=== PATIENT | male | born 1935 | race Caucasian/White ===

== ENCOUNTER 2017-10-14 18:45 | Observation (INO) | payer MEDICARE ==
[2017-10-14] MEDS ORDERED: 50% Dextrose in Water 50 ML Syringe IVPUSH ONE (18:48)
[2017-10-14] MEDS ORDERED: Glucagon,Human Recombinant 1 MG Vial ONE (18:48)
[2017-10-14] MEDS ORDERED: 50% Dextrose in Water 50 ML Syringe ONE (18:49)
[2017-10-14] MEDS ORDERED: Sodium Chloride 0.9% 1,000 ML IV SCH (19:00)
--- NOTE | 2017-10-14 19:09 | EDM.PDOC ---
ED HPI GENERAL MEDICAL PROBLEM - General Stated Complaint: PT HAS LOW BLOOD SUGAR Time Seen by Provider: 10/14/17 18:45 Source of Information: Reports: Family, Old Records - History of Present Illness INITIAL COMMENTS - FREE TEXT/NARRATIVE: HISTORY AND PHYSICAL: Low Blood sugar History of present illness: Patient is a 81-year-old male who presents to the emergency room by family members after an episode of low blood sugar causing him to be unresponsive. A home health nurse had talked to a family member who stated his blood sugar was in the 30-40's. Family then gave him some honey and chocolate milk but the sugar only increased by a couple points. Family members felt that he was not as responsive and brought him to the emergency room by private vehicle. Vital, ER nursing staff had to assist the patient from their personal vehicle into a wheelchair into the emergency department patient is breathing even and easily. He is drowsy, groaning out/slurred speech "help me". He is able to slowly follow commands. Patient has a past medical history of end-stage renal disease (receives dialysis , has missed 2 visits over the past 9 days), coronary artery disease, MS with stent placement, PVD, DM Type 2, hypertension, hyperlipidemia and end stage lung cancer with metastases "all over". Review of systems: As per history of present illness and below otherwise all systems reviewed and negative. Past medical history: As per history of present illness and as reviewed below otherwise noncontributory. Surgical history: As per history of present illness and as reviewed below otherwise noncontributory. Social history: No reported history of drug or alcohol abuse. Family history: As per history of present illness and as reviewed below otherwise noncontributory. Physical exam: General: Alert and oriented 81-year-old male. Appears chronically ill but in no acute distress. HEENT: Atraumatic, normocephalic, pupils equal and reactive bilaterally, negative for conjunctival pallor or scleral icterus, mucous membranes moist, throat clear, neck supple, nontender, trachea midline. No meningeal signs Lungs: Clear to auscultation, breath sounds equal bilaterally, chest nontender. Heart: S1S2, regular rate and rhythm without overt murmur Abdomen: Soft, nondistended, nontender. Negative for masses or hepatosplenomegaly. Negative for costovertebral tenderness. Pelvis: Stable nontender. Genitourinary: Deferred. Rectal: Deferred. Skin: Intact, warm, dry. Some old various bruising noted to lower extremities. No lesions or rashes noted. Extremities: Atraumatic, moves all extremties per self, negative for cords or calf pain. Neurovascular unremarkable. Neuro: Awake, alert, oriented (post D50 injection). Cranial nerves II through XII unremarkable. Cerebellum unremarkable. Motor and sensory unremarkable throughout. Exam nonfocal. Notes: GCS 9. IV access was established and an ampule of D50 was given. Within several minutes the patient became more alert and able to talk slurred speech. GCS 15. Daughter is now at the bedside and states that the is currently receiving home care and DNR due to his metastatic lung cancer. She states that he fell last night onto his right knee and ear, resulting in bruising. She states he has not lost any consciousness with this fall. This is the first time the patient has had a hypoglycemic episode. Reports he has been eating and drinking appropriately prior to coming to the emergency room. 194: CT of the head shows no evidence of mass, acute infarction or hemorrhage. There is a noted on the posterior tiffanie which the radiologist aches could represent calcification. CXR shows no changes from previous x-rays. Current blood sugar is 143. WBC: 18.48, BUN 41, Creat 4.3 (Hx of ESRD; has missed dialysis once this week). Family is aware of lab results/imaging; they would like him kept overnight for observation as they are uncomfortable going home with his blood sugar drop. Will consult with Cliff. 2000: Dr. Coronado is aware of this patient. He will come down to talk with the family members about admission versus transfer. My conversation with the family is that they would like to stay here. We'll continue to monitor, vital signs are stable. Diagnostics: CBC, CMP, troponin, EKG, chest x-ray, head CT, bedside glucose checks Therapeutics: IV normal saline, 1 ampule of D50 Impression: Hypoglycemia Renal failure Plan: Patient will be admitted for observation for comfort measures to [facility] per Dr. Coronado. Definitive disposition and diagnosis as appropriate pending reevaluation and review of above. Duration: Hour(s): - Related Data Allergies Allergy/AdvReac Type Severity Reaction Status Date / Time penicillin Allergy itchiness Verified 10/14/17 19:00 Home Meds: Home Meds Insulin Aspart [Novolog Flexpen] 9 units SQ DAILY 02/15/15 [History] Insulin Aspart [Novolog Flexpen] 11 units SQ BID 02/15/15 [History] Insulin Detemir [Levemir Flextouch] 35 units SQ DAILY 02/15/15 [History] Insulin Detemir [Levemir Flextouch] 40 units SQ DAILY 02/15/15 [History] Albuterol/Ipratropium [DuoNeb 3.0-0.5 MG/3 ML] 1 ampule INH ASDIRECTED 10/14/17 [History] Ipratropium/Albuterol Sulfate [Combivent Respimat Inhal [place]] 20 mcg IH ASDIRECTED 10/14/17 [History] Isosorbide Mononitrate [Imdur] 1 tab PO BID 10/14/17 [History] Metoprolol Succinate [Toprol XL 100mg] 100 mg PO BID 10/14/17 [History] NIFEdipine [Nifedipine ER] 1 tab PO DAILY 10/14/17 [History] Oxybutynin 1 tab PO DAILY 10/14/17 [History] Rosuvastatin Calcium 40 mg PO DAILY 10/14/17 [History] Sevelamer Carbonate [Renvela] 1 tab PO DAILY 10/14/17 [History] oxyCODONE HCl [Oxycodone HCl ER] 1 tab PO Q4HR PRN 10/14/17 [History] Social & Family History - Tobacco Use Smoking Status *Q: Current Every Day Smoker Years of Tobacco use: 64 ED ROS GENERAL - Review of Systems Review Of Systems: ROS reveals no pertinent complaints other than HPI. ED EXAM GENERAL NO PERIP PULSE - Physical Exam Exam: See Below (See dictation) Course - Vital Signs Last Recorded V/S: Last Vital Signs Temp 98.0 F 10/14/17 18:50 Pulse 64 10/14/17 20:00 Resp 19 10/14/17 20:00 BP 151/61 H 10/14/17 20:00 Pulse Ox 97 10/14/17 20:00 - Orders/Labs/Meds Orders: Active Orders 24 hr Category Date Time Status Admission Status [Patient Status] [ADT] Stat ADT 10/14/17 20:43 Active EKG Documentation Completion [RC] STAT Care 10/14/17 18:48 Active Glucose [Blood Glucose Check, Bedside] [RC] ONETIME Care 10/14/17 19:09 Active Chest 1V Frontal [CR] Stat Exams 10/14/17 18:48 Taken Head wo Cont [CT] Stat Exams 10/14/17 19:09 Taken UA W/MICROSCOPIC [URIN] Stat Lab 10/14/17 18:49 Ordered Sodium Chloride 0.9% [Normal Saline] 1,000 ml Med 10/14/17 19:00 Active IV ASDIRECTED Medication Orders Sodium Chloride (Normal Saline) 1,000 mls @ 999 mls/hr IV ASDIRECTED PHAM Last Admin: 10/14/17 18:52 Dose: 999 mls/hr Labs: Laboratory Tests 10/14/17 10/14/17 10/14/17 Range/Units 18:50 18:50 18:55 WBC 18.48 H (4.0-11.0) K/uL RBC 3.18 L (4.50-5.90) M/uL Hgb 10.3 L (13.0-17.0) g/dL Hct 30.8 L (38.0-50.0) % MCV 96.9 (80.0-98.0) fL MCH 32.4 H (27.0-32.0) pg MCHC 33.4 (31.0-37.0) g/dL RDW Std Deviation 59.1 (28.0-62.0) fl RDW Coeff of Sara 17 H (11.0-15.0) % Plt Count 262 (150-400) K/uL MPV 9.10 (7.40-12.00) fL Add Manual Diff YES Neutrophils % (Manual) 86 H (48.0-80.0) % Band Neutrophils % 2 % Lymphocytes % (Manual) 9 L (16.0-40.0) % Basophils % (Manual) 3 H (0.0-1.5) % Nucleated RBC % 0.0 /100WBC Absolute Seg Neuts 15.9 H (1.4-5.7) Band Neutrophils # 0.4 Lymphocytes # (Manual) 1.7 (0.6-2.4) Basophils # (Manual) 0.6 H (0.0-0.1) Nucleated RBCs # 0 K/uL Sodium 136 (136-148) mmol/L Potassium 4.1 (3.5-5.1) mmol/L Chloride 97 L (98-107) mmol/L Carbon Dioxide 26.4 (21.0-32.0) mmol/L BUN 41 H (7.0-18.0) mg/dL Creatinine 4.3 H (0.8-1.3) mg/dL Est Cr Clr Drug Dosing 15.29 mL/min Estimated GFR (MDRD) 13.4 ml/min Glucose 47 L (74-106) mg/dL POC Glucose 220 H (60-110) mg/dL Calcium 10.5 H (8.5-10.1) mg/dL Total Bilirubin 0.3 (0.2-1.0) mg/dL AST 34 (15-37) IU/L ALT 43 (14-63) IU/L Alkaline Phosphatase 198 H (46-116) U/L Troponin I < 0.050 (0.000-0.056) ng/mL Total Protein 8.2 (6.4-8.2) g/dL Albumin 3.1 L (3.4-5.0) g/dL Globulin 5.1 H (2.0-3.5) g/dL Albumin/Globulin Ratio 0.6 L (1.3-2.8) 10/14/17 Range/Units 19:49 WBC (4.0-11.0) K/uL RBC (4.50-5.90) M/uL Hgb (13.0-17.0) g/dL Hct (38.0-50.0) % MCV (80.0-98.0) fL MCH (27.0-32.0) pg MCHC (31.0-37.0) g/dL RDW Std Deviation (28.0-62.0) fl RDW Coeff of Sara (11.0-15.0) % Plt Count (150-400) K/uL MPV (7.40-12.00) fL Add Manual Diff Neutrophils % (Manual) (48.0-80.0) % Band Neutrophils % % Lymphocytes % (Manual) (16.0-40.0) % Basophils % (Manual) (0.0-1.5) % Nucleated RBC % /100WBC Absolute Seg Neuts (1.4-5.7) Band Neutrophils # Lymphocytes # (Manual) (0.6-2.4) Basophils # (Manual) (0.0-0.1) Nucleated RBCs # K/uL Sodium (136-148) mmol/L Potassium (3.5-5.1) mmol/L Chloride (98-107) mmol/L Carbon Dioxide (21.0-32.0) mmol/L BUN (7.0-18.0) mg/dL Creatinine (0.8-1.3) mg/dL Est Cr Clr Drug Dosing mL/min Estimated GFR (MDRD) ml/min Glucose (74-106) mg/dL POC Glucose 143 H (60-110) mg/dL Calcium (8.5-10.1) mg/dL Total Bilirubin (0.2-1.0) mg/dL AST (15-37) IU/L ALT (14-63) IU/L Alkaline Phosphatase (46-116) U/L Troponin I (0.000-0.056) ng/mL Total Protein (6.4-8.2) g/dL Albumin (3.4-5.0) g/dL Globulin (2.0-3.5) g/dL Albumin/Globulin Ratio (1.3-2.8) Meds: Medications Generic Name Dose Route Start Last Admin Trade Name Freq PRN Reason Stop Dose Admin Sodium Chloride 1,000 mls @ 999 mls/hr 10/14/17 19:00 10/14/17 18:52 Normal Saline IV 999 mls/hr ASDIRECTED PHAM Administration Discontinued Medications Generic Name Dose Route Start Last Admin Trade Name Freq PRN Reason Stop Dose Admin Dextrose/Water 50 ml 10/14/17 18:48 10/14/17 18:51 Dextrose 50% In Water IVPUSH 10/14/17 18:49 50 ml ONETIME ONE Administration Dextrose/Water Confirm 10/14/17 18:49 10/14/17 19:03 Dextrose 50% In Water Administered 10/14/17 18:50 Not Given Dose 50 ml .ROUTE .STK-MED ONE Glucagon Confirm 10/14/17 18:48 10/14/17 18:50 Glucagen Administered 10/14/17 18:49 Not Given Dose 1 mg .ROUTE .STK-MED ONE Departure - Departure Time of Disposition: 20:46 Disposition: Refer to Observation Clinical Impression: Hypoglycemia Renal failure Qualifiers: Renal failure chronicity: chronic Chronic kidney disease stage: on chronic dialysis Qualified Code(s): N18.6 - End stage renal disease; Z99.2 - Dependence on renal dialysis - Discharge Information Referrals: PCP,None [Primary Care Provider] - - My Orders Last 24 Hours: My Active Orders 10/14/17 18:48 EKG Documentation Completion [RC] STAT Chest 1V Frontal [CR] Stat 10/14/17 18:49 UA W/MICROSCOPIC [URIN] Stat 10/14/17 19:00 Sodium Chloride 0.9% [Normal Saline] 1,000 ml IV ASDIRECTED 10/14/17 19:09 Glucose [Blood Glucose Check, Bedside] [RC] ONETIME Head wo Cont [CT] Stat 10/14/17 20:43 Admission Status [Patient Status] [ADT] Stat - Assessment/Plan Last 24 Hours: My Active Orders 10/14/17 18:48 EKG Documentation Completion [RC] STAT Chest 1V Frontal [CR] Stat 10/14/17 18:49 UA W/MICROSCOPIC [URIN] Stat 10/14/17 19:00 Sodium Chloride 0.9% [Normal Saline] 1,000 ml IV ASDIRECTED 10/14/17 19:09 Glucose [Blood Glucose Check, Bedside] [RC] ONETIME Head wo Cont [CT] Stat 10/14/17 20:43 Admission Status [Patient Status] [ADT] Stat
[2017-10-14 19:23] LABS: CHLORIDE,CL 97 mmol/L (98-107); SODIUM,NA 136 mmol/L (136-148)
--- NOTE | 2017-10-14 20:58 | PCM.HP ---
H&P History of Present Illness - General Admit Problem/Dx: Admission Diagnosis/Problem Admission Diagnosis/Problem Hypoglycemia - History of Present Illness Initial Comments - Free Text/Narative: 81 yo male with pmh of ESRD on dialysis, metastatic lung cancer, CAD, and DM. The patient was noted to be unresponsive at home his blood glucose level was noted to be 37. He was brought to the ED and given D50 which brought his glucose up to 143. Patient over the past week has felt run down and missed his dialysis as he did not feel like going. Family reports generalized weakness. - Related Data Allergies/Adverse Reactions: Allergies Allergy/AdvReac Type Severity Reaction Status Date / Time penicillin Allergy itchiness Verified 10/14/17 19:00 Home Medications: Home Meds Insulin Aspart [Novolog Flexpen] 9 units SQ DAILY 02/15/15 [History] Insulin Aspart [Novolog Flexpen] 11 units SQ BID 02/15/15 [History] Insulin Detemir [Levemir Flextouch] 35 units SQ DAILY 02/15/15 [History] Insulin Detemir [Levemir Flextouch] 40 units SQ DAILY 02/15/15 [History] Albuterol/Ipratropium [DuoNeb 3.0-0.5 MG/3 ML] 1 ampule INH ASDIRECTED 10/14/17 [History] Ipratropium/Albuterol Sulfate [Combivent Respimat Inhal [place]] 20 mcg IH ASDIRECTED 10/14/17 [History] Isosorbide Mononitrate [Imdur] 1 tab PO BID 10/14/17 [History] Metoprolol Succinate [Toprol XL 100mg] 100 mg PO BID 10/14/17 [History] NIFEdipine [Nifedipine ER] 1 tab PO DAILY 10/14/17 [History] Oxybutynin 1 tab PO DAILY 10/14/17 [History] Rosuvastatin Calcium 40 mg PO DAILY 10/14/17 [History] Sevelamer Carbonate [Renvela] 1 tab PO DAILY 10/14/17 [History] oxyCODONE HCl [Oxycodone HCl ER] 1 tab PO Q4HR PRN 10/14/17 [History] Past Medical History Cardiovascular History: Reports: CAD, High Cholesterol, Hypertension, MA, PVD, Stents Genitourinary History: Reports: Renal Disease Endocrine/Metabolic History: Reports: Diabetes, Type II Oncologic (Cancer) History: Reports: Lung, Other (See Below) Other Oncologic History: metastatic lung cancer Social & Family History - Family History Family Medical History: Noncontributory - Tobacco Use Smoking Status *Q: Current Every Day Smoker Years of Tobacco use: 64 Used Tobacco, but Quit: Yes Month/Year Tobacco Last Used: unk - Recreational Drug Use Recreational Drug Use: No H&P Review of Systems - Review of Systems: Review Of Systems: ROS reveals no pertinent complaints other than HPI. Exam - Exam Exam: See Below - Vital Signs Vital Signs: Last Vital Signs Temp 36.7 C 10/14/17 18:50 Pulse 64 10/14/17 20:00 Resp 19 10/14/17 20:00 BP 151/61 H 10/14/17 20:00 Pulse Ox 97 10/14/17 20:00 Weight: 86.1 kg - Exam General: Alert, Oriented Lungs: Clear to Auscultation, Normal Respiratory Effort Cardiovascular: Regular Rate, Regular Rhythm GI/Abdominal Exam: Soft, Non-Tender Extremities: No Pedal Edema Skin: Warm, Dry, Intact - Patient Data Lab Results Last 24 hrs: Laboratory Results - last 24 hr 10/14/17 10/14/17 10/14/17 Range/Units 18:50 18:50 18:55 WBC 18.48 H (4.0-11.0) K/uL RBC 3.18 L (4.50-5.90) M/uL Hgb 10.3 L (13.0-17.0) g/dL Hct 30.8 L (38.0-50.0) % MCV 96.9 (80.0-98.0) fL MCH 32.4 H (27.0-32.0) pg MCHC 33.4 (31.0-37.0) g/dL RDW Std Deviation 59.1 (28.0-62.0) fl RDW Coeff of Sara 17 H (11.0-15.0) % Plt Count 262 (150-400) K/uL MPV 9.10 (7.40-12.00) fL Add Manual Diff YES Neutrophils % (Manual) 86 H (48.0-80.0) % Band Neutrophils % 2 % Lymphocytes % (Manual) 9 L (16.0-40.0) % Basophils % (Manual) 3 H (0.0-1.5) % Nucleated RBC % 0.0 /100WBC Absolute Seg Neuts 15.9 H (1.4-5.7) Band Neutrophils # 0.4 Lymphocytes # (Manual) 1.7 (0.6-2.4) Basophils # (Manual) 0.6 H (0.0-0.1) Nucleated RBCs # 0 K/uL Sodium 136 (136-148) mmol/L Potassium 4.1 (3.5-5.1) mmol/L Chloride 97 L (98-107) mmol/L Carbon Dioxide 26.4 (21.0-32.0) mmol/L BUN 41 H (7.0-18.0) mg/dL Creatinine 4.3 H (0.8-1.3) mg/dL Est Cr Clr Drug Dosing 15.29 mL/min Estimated GFR (MDRD) 13.4 ml/min Glucose 47 L (74-106) mg/dL POC Glucose 220 H (60-110) mg/dL Calcium 10.5 H (8.5-10.1) mg/dL Total Bilirubin 0.3 (0.2-1.0) mg/dL AST 34 (15-37) IU/L ALT 43 (14-63) IU/L Alkaline Phosphatase 198 H (46-116) U/L Troponin I < 0.050 (0.000-0.056) ng/mL Total Protein 8.2 (6.4-8.2) g/dL Albumin 3.1 L (3.4-5.0) g/dL Globulin 5.1 H (2.0-3.5) g/dL Albumin/Globulin Ratio 0.6 L (1.3-2.8) 10/14/17 Range/Units 19:49 WBC (4.0-11.0) K/uL RBC (4.50-5.90) M/uL Hgb (13.0-17.0) g/dL Hct (38.0-50.0) % MCV (80.0-98.0) fL MCH (27.0-32.0) pg MCHC (31.0-37.0) g/dL RDW Std Deviation (28.0-62.0) fl RDW Coeff of Sara (11.0-15.0) % Plt Count (150-400) K/uL MPV (7.40-12.00) fL Add Manual Diff Neutrophils % (Manual) (48.0-80.0) % Band Neutrophils % % Lymphocytes % (Manual) (16.0-40.0) % Basophils % (Manual) (0.0-1.5) % Nucleated RBC % /100WBC Absolute Seg Neuts (1.4-5.7) Band Neutrophils # Lymphocytes # (Manual) (0.6-2.4) Basophils # (Manual) (0.0-0.1) Nucleated RBCs # K/uL Sodium (136-148) mmol/L Potassium (3.5-5.1) mmol/L Chloride (98-107) mmol/L Carbon Dioxide (21.0-32.0) mmol/L BUN (7.0-18.0) mg/dL Creatinine (0.8-1.3) mg/dL Est Cr Clr Drug Dosing mL/min Estimated GFR (MDRD) ml/min Glucose (74-106) mg/dL POC Glucose 143 H (60-110) mg/dL Calcium (8.5-10.1) mg/dL Total Bilirubin (0.2-1.0) mg/dL AST (15-37) IU/L ALT (14-63) IU/L Alkaline Phosphatase (46-116) U/L Troponin I (0.000-0.056) ng/mL Total Protein (6.4-8.2) g/dL Albumin (3.4-5.0) g/dL Globulin (2.0-3.5) g/dL Albumin/Globulin Ratio (1.3-2.8) Result Diagrams: 10/14/17 18:50 10/14/17 18:50 Problem List Initiated/Reviewed/Updated: Yes Orders Last 24hrs: Active Orders 24 hr Category Date Time Status Admission Status [Patient Status] [ADT] Stat ADT 10/14/17 20:43 Active Blood Glucose Check, Bedside [RC] QIDACANDBED Care 10/14/17 20:45 Ordered EKG Documentation Completion [RC] STAT Care 10/14/17 18:48 Active Glucose [Blood Glucose Check, Bedside] [RC] ONETIME Care 10/14/17 19:09 Active Oxygen Therapy [RC] PRN Care 10/14/17 20:45 Ordered Up ad Kayla [RC] ASDIRECTED Care 10/14/17 20:45 Ordered VTE/DVT Education [RC] PER UNIT ROUTINE Care 10/14/17 20:45 Ordered Vital Signs [RC] Q4H Care 10/14/17 20:45 Ordered Regular Diet [DIET] Diet 10/14/17 Breakfast Ordered Chest 1V Frontal [CR] Stat Exams 10/14/17 18:48 Taken Head wo Cont [CT] Stat Exams 10/14/17 19:09 Taken UA W/MICROSCOPIC [URIN] Stat Lab 10/14/17 18:49 Ordered Sodium Chloride 0.9% [Normal Saline] 1,000 ml Med 10/14/17 19:00 Active IV ASDIRECTED Resuscitation Status Routine Resus Stat 10/14/17 20:45 Ordered Medication Orders Sodium Chloride (Normal Saline) 1,000 mls @ 999 mls/hr IV ASDIRECTED PHAM Last Admin: 10/14/17 18:52 Dose: 999 mls/hr Assessment/Plan Comment:: 81 yo male admitted following an episode of hypoglycemia. Regarding the patient's leukocytosis, lethargy, and ESRD I mentioned that as a critical access hospital I could not dialyze him. I could offer him observation with palliative care. Family and patient agree to observe him for his hypoglycemia with likely discharge home tomorrow.
[2017-10-14] MEDS ORDERED: OXYCODONE HCL PO PRN (23:40)
[2017-10-15 07:56] VITALS: BP 130/52
--- NOTE | 2017-10-15 11:28 | PCM.DCSUM1 ---
Discharge Summary - Hospital Course Brief History: 81 yo male with pmh of ESRD on dialysis, metastatic lung cancer, CAD, and DM. The patient was noted to be unresponsive at home his blood glucose level was noted to be 37. He was brought to the ED and given D50 which brought his glucose up to 143. Patient over the past week has felt run down and missed his dialysis as he did not feel like going. Family reports generalized weakness. - Discharge Data Discharge Date: 10/15/17 Discharge Disposition: Home, W Home Health Agency 06 Condition: Fair - Discharge Diagnosis/Problem(s) (1) Hypoglycemia SNOMED Code(s): 338379013 ICD Code: E16.2 - HYPOGLYCEMIA, UNSPECIFIED Status: Acute Current Visit: Yes (2) ESRD (end stage renal disease) on dialysis SNOMED Code(s): 914724291 ICD Code: N18.6 - END STAGE RENAL DISEASE; Z99.2 - DEPENDENCE ON RENAL DIALYSIS Status: Chronic Current Visit: Yes (3) Lung cancer SNOMED Code(s): 016521508 ICD Code: C34.90 - MALIGNANT NEOPLASM OF UNSP PART OF UNSP BRONCHUS OR LUNG Status: Chronic Current Visit: Yes (4) CAD (coronary artery disease) SNOMED Code(s): 22893635 ICD Code: I25.10 - ATHSCL HEART DISEASE OF [place] CORONARY ARTERY W/O ANG PCTRS Status: Chronic Current Visit: Yes (5) DM type 2 (diabetes mellitus, type 2) SNOMED Code(s): 68815088 ICD Code: E11.9 - TYPE 2 DIABETES MELLITUS WITHOUT COMPLICATIONS Status: Chronic Current Visit: Yes Qualifiers: Diabetes mellitus assisted insulin use: with assisted use Diabetes mellitus complication status: with hypoglycemia Diabetes mellitus complication detail: without coma Qualified Code(s): E11.649 - Type 2 diabetes mellitus with hypoglycemia without coma; Z79.4 - local intermodal truck driver (current) use of insulin - Patient Summary/Data Consults: Consultations 10/15/17 08:58 Consult to Hospice [CONS] Routine - Patient Instructions Diet: Diabetic Diet Activity: As Tolerated, No Strenuous Activities, Rest and Relax Today Notify Provider of: Fever, Increased Pain, Swelling and Redness, Drainage, Nausea and/or Vomiting - Discharge Plan Home Medications: Home Meds Insulin Aspart [Novolog Flexpen] 9 units SQ DAILY 02/15/15 [History] Insulin Aspart [Novolog Flexpen] 11 units SQ BID 02/15/15 [History] Albuterol/Ipratropium [DuoNeb 3.0-0.5 MG/3 ML] 1 ampule INH ASDIRECTED 10/14/17 [History] Ipratropium/Albuterol Sulfate [Combivent Respimat Inhal [place]] 20 mcg IH ASDIRECTED 10/14/17 [History] Isosorbide Mononitrate [Imdur] 1 tab PO BID 10/14/17 [History] Metoprolol Succinate [Toprol XL 100mg] 100 mg PO BID 10/14/17 [History] NIFEdipine [Nifedipine ER] 1 tab PO DAILY 10/14/17 [History] Oxybutynin 1 tab PO DAILY 10/14/17 [History] Rosuvastatin Calcium 40 mg PO DAILY 10/14/17 [History] Sevelamer Carbonate [Renvela] 1 tab PO DAILY 10/14/17 [History] oxyCODONE HCl [Oxycodone HCl ER] 1 tab PO Q4HR PRN 10/14/17 [History] Insulin Detemir [Levemir Flextouch] 25 units SQ DAILY #0 10/15/17 [Rx] Insulin Detemir [Levemir Flextouch] 30 units SQ DAILY #0 10/15/17 [Rx] Patient Handouts: Hypoglycemia, [id number] Referrals: PCP,None [Primary Care Provider] - (follow up with PCP in 1 week.) Vasu Jane MD [Physician] - - Discharge Summary/Plan Comment DC Time >30 min.: No Discharge Summary/Plan Comment: Discharge Diagnoses: Hypoglycemia Malaise/fatigue ESRD on dialysis Lung cancer CAD Dm type 2 requiring insulin Rufus arrived yesterday with hypoglycemic episode with unresponsive episode. Patient and family offered transfer for further work up of leukocytosis and fatigue, but family declined this. They were offered palliative care and Hospice consult today, which they would like to speak with Hospice. They are ready for Hospice care, but Rufus is still undecided. He is very adamant of wanting to go home today and will continue to talk with family and Home Health regarding transitioning to Hospice care. Dr Arnold has recommended Hospice care for him as well. For hypoglycemia, we will decrease Levemir by 25%, 35 units in the morning and 20 units at nighttime. I did speak with PCP, Dr Jane regarding admission and possible Hospice transition. Family at bedside are in agreement with discharge home today and with Hospice consult. - General Info Date of Service: 10/15/17 Admission Dx/Problem (Free Text: Admission Diagnosis/Problem Admission Diagnosis/Problem Hypoglycemia Subjective Update: Feeling much better today. Asking to go home. No other concerns. Family at bedside who also agree with discharge home. Functional Status: Reports: Pain Controlled, Tolerating Diet, Ambulating, Urinating - Review of Systems General: Reports: No Symptoms. Denies: Fever, Fatigue HEENT: Reports: No Symptoms. Denies: Sinus Congestion, Visual Changes Pulmonary: Reports: No Symptoms. Denies: Shortness of Breath Cardiovascular: Reports: No Symptoms. Denies: Chest Pain Gastrointestinal: Reports: No Symptoms. Denies: Abdominal Pain, Nausea, Vomiting Genitourinary: Reports: No Symptoms. Denies: Dysuria, Frequency, Burning Musculoskeletal: Reports: No Symptoms Skin: Reports: No Symptoms Neurological: Reports: No Symptoms Psychiatric: Reports: No Symptoms - Patient Data Vitals - Most Recent: Last Vital Signs Temp 98.7 F 10/15/17 07:56 Pulse 72 10/15/17 07:56 Resp 16 10/15/17 07:56 BP 130/52 L 10/15/17 07:56 Pulse Ox 99 10/15/17 07:56 Weight - Most Recent: 84.538 kg I&O - Last 24 hours: Intake & Output 10/14/17 10/15/17 10/15/17 22:59 06:59 14:59 Intake Total 1240 Output Total 280 400 Balance -280 840 Lab Results - Last 24 hrs: Laboratory Results - last 24 hr 10/14/17 10/14/17 10/14/17 Range/Units 18:50 18:50 18:55 WBC 18.48 H (4.0-11.0) K/uL RBC 3.18 L (4.50-5.90) M/uL Hgb 10.3 L (13.0-17.0) g/dL Hct 30.8 L (38.0-50.0) % MCV 96.9 (80.0-98.0) fL MCH 32.4 H (27.0-32.0) pg MCHC 33.4 (31.0-37.0) g/dL RDW Std Deviation 59.1 (28.0-62.0) fl RDW Coeff of Saar 17 H (11.0-15.0) % Plt Count 262 (150-400) K/uL MPV 9.10 (7.40-12.00) fL Add Manual Diff YES Neutrophils % (Manual) 86 H (48.0-80.0) % Band Neutrophils % 2 % Lymphocytes % (Manual) 9 L (16.0-40.0) % Basophils % (Manual) 3 H (0.0-1.5) % Nucleated RBC % 0.0 /100WBC Absolute Seg Neuts 15.9 H (1.4-5.7) Band Neutrophils # 0.4 Lymphocytes # (Manual) 1.7 (0.6-2.4) Basophils # (Manual) 0.6 H (0.0-0.1) Nucleated RBCs # 0 K/uL Sodium 136 (136-148) mmol/L Potassium 4.1 (3.5-5.1) mmol/L Chloride 97 L (98-107) mmol/L Carbon Dioxide 26.4 (21.0-32.0) mmol/L BUN 41 H (7.0-18.0) mg/dL Creatinine 4.3 H (0.8-1.3) mg/dL Est Cr Clr Drug Dosing 15.29 mL/min Estimated GFR (MDRD) 13.4 ml/min Glucose 47 L (74-106) mg/dL POC Glucose 220 H (60-110) mg/dL Calcium 10.5 H (8.5-10.1) mg/dL Total Bilirubin 0.3 (0.2-1.0) mg/dL AST 34 (15-37) IU/L ALT 43 (14-63) IU/L Alkaline Phosphatase 198 H (46-116) U/L Troponin I < 0.050 (0.000-0.056) ng/mL Total Protein 8.2 (6.4-8.2) g/dL Albumin 3.1 L (3.4-5.0) g/dL Globulin 5.1 H (2.0-3.5) g/dL Albumin/Globulin Ratio 0.6 L (1.3-2.8) Urine Color Urine Appearance Urine pH (5.0-8.0) Ur Specific [place] (1.001-1.035) Urine Protein (NEGATIVE) mg/dL Urine Glucose (UA) (NEGATIVE) mg/dL Urine Ketones (NEGATIVE) mg/dL Urine Occult Blood (NEGATIVE) Urine Nitrite (NEGATIVE) Urine Bilirubin (NEGATIVE) Urine Urobilinogen (<2.0) EU/dL Ur Leukocyte Esterase (NEGATIVE) Urine RBC (0-2/HPF) Urine WBC (0-5/HPF) Ur Epithelial Cells (NONE-FEW) Urine Bacteria (NEGATIVE) 10/14/17 10/14/17 Range/Units 19:49 20:40 WBC (4.0-11.0) K/uL RBC (4.50-5.90) M/uL Hgb (13.0-17.0) g/dL Hct (38.0-50.0) % MCV (80.0-98.0) fL MCH (27.0-32.0) pg MCHC (31.0-37.0) g/dL RDW Std Deviation (28.0-62.0) fl RDW Coeff of Sara (11.0-15.0) % Plt Count (150-400) K/uL MPV (7.40-12.00) fL Add Manual Diff Neutrophils % (Manual) (48.0-80.0) % Band Neutrophils % % Lymphocytes % (Manual) (16.0-40.0) % Basophils % (Manual) (0.0-1.5) % Nucleated RBC % /100WBC Absolute Seg Neuts (1.4-5.7) Band Neutrophils # Lymphocytes # (Manual) (0.6-2.4) Basophils # (Manual) (0.0-0.1) Nucleated RBCs # K/uL Sodium (136-148) mmol/L Potassium (3.5-5.1) mmol/L Chloride (98-107) mmol/L Carbon Dioxide (21.0-32.0) mmol/L BUN (7.0-18.0) mg/dL Creatinine (0.8-1.3) mg/dL Est Cr Clr Drug Dosing mL/min Estimated GFR (MDRD) ml/min Glucose (74-106) mg/dL POC Glucose 143 H (60-110) mg/dL Calcium (8.5-10.1) mg/dL Total Bilirubin (0.2-1.0) mg/dL AST (15-37) IU/L ALT (14-63) IU/L Alkaline Phosphatase (46-116) U/L Troponin I (0.000-0.056) ng/mL Total Protein (6.4-8.2) g/dL Albumin (3.4-5.0) g/dL Globulin (2.0-3.5) g/dL Albumin/Globulin Ratio (1.3-2.8) Urine Color YELLOW Urine Appearance HAZY Urine pH 7.5 (5.0-8.0) Ur Specific [place] 1.015 (1.001-1.035) Urine Protein 100 (NEGATIVE) mg/dL Urine Glucose (UA) NEGATIVE (NEGATIVE) mg/dL Urine Ketones NEGATIVE (NEGATIVE) mg/dL Urine Occult Blood TRACE-INTACT (NEGATIVE) Urine Nitrite NEGATIVE (NEGATIVE) Urine Bilirubin NEGATIVE (NEGATIVE) Urine Urobilinogen 0.2 (<2.0) EU/dL Ur Leukocyte Esterase TRACE (NEGATIVE) Urine RBC 0-2 (0-2/HPF) Urine WBC 1-4 (0-5/HPF) Ur Epithelial Cells RARE (NONE-FEW) Urine Bacteria FEW (NEGATIVE) Med Orders - Current: Current Medications Sodium Chloride (Normal Saline) 1,000 mls @ 999 mls/hr IV ASDIRECTED [facility] Last Admin: 10/14/17 18:52 Dose: 999 mls/hr Non-Formulary Medication (Oxycodone Hcl [Oxycodone Hcl Er]) 1 tab PO Q4HR PRN PRN Reason: Pain Discontinued Medications Dextrose/Water (Dextrose 50% In Water) 50 ml IVPUSH ONETIME ONE Stop: 10/14/17 18:49 Last Admin: 10/14/17 18:51 Dose: 50 ml Dextrose/Water (Dextrose 50% In Water) Confirm Administered Dose 50 ml .ROUTE .STK-MED ONE Stop: 10/14/17 18:50 Last Admin: 10/14/17 19:03 Dose: Not Given Glucagon (Glucagen) Confirm Administered Dose 1 mg .ROUTE .STK-MED ONE Stop: 10/14/17 18:49 Last Admin: 10/14/17 18:50 Dose: Not Given - Exam General: Reports: Alert, Oriented, Cooperative, No Acute Distress Lungs: Reports: Clear to Auscultation, Normal Respiratory Effort Cardiovascular: Reports: Regular Rate, Regular Rhythm GI/Abdominal Exam: Normal Bowel Sounds, Soft, Non-Tender, No Organomegaly, No Distention, No Abnormal Bruit, No Mass, Pelvis Stable Extremities: Normal Inspection, Normal Range of Motion, Non-Tender, No Pedal Edema, Normal Capillary Refill Neurological: Reports: No New Focal Deficit Psy/Mental Status: Reports: Alert, Normal Affect, Normal Mood
--- NOTE | 2017-10-15 15:03 | CR ---
EXAM DATE: 10/14/17 PATIENT'S AGE: 81 Patient: MARIA T HERNÁNDEZ Facility: [place], [place] Site . Site : 1935 Study: XRay Chest [id number]/[id number] 7:09:25 PM Ordering Physician: Doctor Aquino Final Report: INDICATION: AMS. Loss of consciousness. TECHNIQUE: Upright portable AP image of the chest. COMPARISON: 08/20/2017. FINDINGS: AP image somewhat lordotic. Right apical opacity grossly unchanged. Lungs otherwise clear. No pleural effusion. Heart size and pulmonary vasculature within normal limits. IMPRESSION: No significant change from 08/20/2017. Dictated by Greg Bustamante MD @ Oct 14 2017 7:23PM (Electronic Signature) Report Signed by Proxy. TULIO
--- NOTE | 2017-10-15 15:04 | CT ---
EXAM DATE: 10/14/17 PATIENT'S AGE: 81 Patient: MARIA T HERNÁNDEZ Facility: [place], [place] Site . Site : 1935 Study: CT Head [id number]/8/2018 7:34:22 PM Ordering Physician: Doctor Aquino Final Report: INDICATION: Transient alteration of awareness, loss of consciousness TECHNIQUE: CT Head without i.v. contrast. CONTRAST: None COMPARISON: None FINDINGS: CSF spaces: The ventricles are normal for age. Brain: No evidence of mass, acute infarction or hemorrhage is seen. No mass- effect or midline shift is seen. Mild diffuse cortical atrophy is noted. Moderate patchy regions of low attenuation are present in the periventricular white matter, likely due to chronic microvascular ischemic changes. There is a punctate density present in the posterior tiffanie measuring 3 mm. Calvarium: The visualized paranasal sinuses are well aerated. The mastoid air cells are clear. The visualized orbits are grossly unremarkable. The calvarium is unremarkable in appearance with no fractures identified. IMPRESSION: 1. There is a punctate density present in the posterior tiffanie measuring 3 mm. This may represent a focus of calcification and comparison with any prior outside imaging is recommended. If these cannot be obtained, clinical and short- term follow-up is recommended to exclude the less likely possibility of a punctate hemorrhage. A copy of this report was faxed to the ordering physician at approximately 7:46 PM. Dictated by Alo Saldaña MD @ 10/14/2017 7:46:01 PM Dictated by: Alo Saldaña MD @ 10/14/2017 19:46:29 (Electronic Signature) Report Signed by Proxy. TULIO
== END 2017-10-15 13:30 | disposition home health service (06) ==
LOC: MW.ED 18:45 → MW.MS 20:43
PROVIDERS: ADMIT Internal Medicine; ATTEND Internal Medicine
DX: E11.649 Type 2 diabetes mellitus with hypoglycemia without coma (principal); I12.0 Hypertensive chronic kidney disease with stage 5 chronic kidney disease or end stage renal disease; N18.6 End stage renal disease; C34.90 Malignant neoplasm of unspecified part of unspecified bronchus or lung; E11.22 Type 2 diabetes mellitus with diabetic chronic kidney disease; E78.00 Pure hypercholesterolemia, unspecified; I25.10 Atherosclerotic heart disease of native coronary artery without angina pectoris; F17.200 Nicotine dependence, unspecified, uncomplicated; I25.2 Old myocardial infarction; Z99.2 Dependence on renal dialysis; Z79.4 Long term (current) use of insulin; Z79.899 Other long term (current) drug therapy; Z88.0 Allergy status to penicillin
CPT/HCPCS: 36415; 70450; 71045; 80053; 81001; 82962; 84484; 85025; 93005; 96361; 96374; 99285; G0378; J7040; J7060

== ENCOUNTER 2017-10-30 10:29 | Inpatient (IN) | payer MEDICARE ==
[2017-10-30] MEDS ORDERED: Morphine Oral Concentrate 20 MG/ML 30 ML Bottle SL PRN ×2 (10:34→12:33)
[2017-10-30 10:36] VITALS: BP 161/55
[2017-10-30] MEDS ORDERED: Hyoscyamine 0.125 MG Tab.SL SL PRN (10:42)
[2017-10-30] MEDS ORDERED: Haloperidol Lactate 2 MG/ML Oral Soln 15 ML Bottle PO PRN (10:42)
[2017-10-30] MEDS ORDERED: Bisacodyl 10 MG Supp RECTAL PRN (10:44)
[2017-10-30] MEDS: Morphine Oral Concentrate 20 MG/ML 30 ML Bottle SL PRN ×3 (11:02→12:24)
--- NOTE | 2017-10-30 11:09 | PCM.HP ---
H&P History of Present Illness - General Date of Service: 10/30/17 Admit Problem/Dx: Admission Diagnosis/Problem Admission Diagnosis/Problem Hospice care Source of Information: Family, Old Records (Hospice records) History Limitations: Reports: Altered Mental Status - History of Present Illness Initial Comments - Free Text/Narative: This 82 year old male admitted today with Hospice Respite care for palliative care due to terminal illness of Metastatic lung cancer and ESRD with hx of dialysis. Family has been caring for Rufus at home. Family requested respite care. PCP, Dr Jane. - Related Data Allergies/Adverse Reactions: Allergies Allergy/AdvReac Type Severity Reaction Status Date / Time penicillin Allergy itchiness Verified 10/14/17 23:48 Home Medications: Home Meds Insulin Aspart [Novolog Flexpen] 9 units SQ DAILY 02/15/15 [History] Insulin Aspart [Novolog Flexpen] 11 units SQ BID 02/15/15 [History] Albuterol/Ipratropium [DuoNeb 3.0-0.5 MG/3 ML] 1 ampule INH ASDIRECTED 10/14/17 [History] Ipratropium/Albuterol Sulfate [Combivent Respimat Inhal [place]] 20 mcg IH ASDIRECTED 10/14/17 [History] Isosorbide Mononitrate [Imdur] 1 tab PO BID 10/14/17 [History] Metoprolol Succinate [Toprol XL 100mg] 100 mg PO BID 10/14/17 [History] NIFEdipine [Nifedipine ER] 1 tab PO DAILY 10/14/17 [History] Oxybutynin 1 tab PO DAILY 10/14/17 [History] Rosuvastatin Calcium 40 mg PO DAILY 10/14/17 [History] Sevelamer Carbonate [Renvela] 1 tab PO DAILY 10/14/17 [History] oxyCODONE HCl [Oxycodone HCl ER] 1 tab PO Q4HR PRN 10/14/17 [History] Insulin Detemir [Levemir Flextouch] 25 units SQ DAILY #0 10/15/17 [Rx] Insulin Detemir [Levemir Flextouch] 30 units SQ DAILY #0 10/15/17 [Rx] Past Medical History Cardiovascular History: Reports: CAD, High Cholesterol, Hypertension, [place], PVD, Stents Respiratory History: Reports: COPD Genitourinary History: Reports: Renal Disease (ESRD, hx dialysis) Endocrine/Metabolic History: Reports: Diabetes, Type II Oncologic (Cancer) History: Reports: Lung, Other (See Below) Other Oncologic History: metastatic lung cancer Social & Family History - Family History Family Medical History: Noncontributory - Tobacco Use Smoking Status *Q: Current Every Day Smoker Years of Tobacco use: 65 Packs/Tins Daily: 1 Used Tobacco, but Quit: No Month/Year Tobacco Last Used: unk - Caffeine Use Caffeine Use: Reports: None - Recreational Drug Use Recreational Drug Use: No H&P Review of Systems - Review of Systems: Review Of Systems: Unable To Obtain (patient unresponsive.) Exam - Exam Exam: See Below - Vital Signs Vital Signs: Last Vital Signs Temp 97.7 F 10/30/17 10:31 Pulse 72 10/30/17 10:31 Resp 22 H 10/30/17 10:31 BP 161/55 H 10/30/17 10:31 Pulse Ox 86 L 10/30/17 10:31 - Exam General: Lethargic, Other (pallor) HEENT: Conjunctiva Clear. No: Mucosa Moist & [place] Neck: Supple Lungs: Crackles (throughout), Rhonchi Cardiovascular: Regular Rate, Regular Rhythm Extremities: Normal Inspection, Normal Range of Motion, Non-Tender, No Pedal Edema, Normal Capillary Refill - Problem List (1) Admission for hospice care SNOMED Code(s): 830286974, 443914412 ICD Code: Z51.5 - ENCOUNTER FOR PALLIATIVE CARE Status: Acute Current Visit: Yes (2) Palliative care status SNOMED Code(s): 489295835 ICD Code: Z51.5 - ENCOUNTER FOR PALLIATIVE CARE Status: Acute Current Visit: Yes (3) Hx of myocardial infarction SNOMED Code(s): 686095391 ICD Code: I25.2 - OLD MYOCARDIAL INFARCTION Status: Chronic Current Visit : Yes (4) HTN (hypertension) SNOMED Code(s): 63020774 ICD Code: I10 - ESSENTIAL (PRIMARY) HYPERTENSION Status: Chronic Current Visit: Yes Qualifiers: Hypertension type: essential hypertension Qualified Code(s): I10 - Essential (primary) hypertension (5) Anemia, chronic disease SNOMED Code(s): 445293757 ICD Code: D63.8 - ANEMIA IN OTHER CHRONIC DISEASES CLASSIFIED ELSEWHERE Status: Chronic Current Visit: Yes (6) CAD (coronary artery disease) SNOMED Code(s): 11011312 ICD Code: I25.10 - ATHSCL HEART DISEASE OF [place] CORONARY ARTERY W/O ANG PCTRS Status: Chronic Current Visit: No (7) DM type 2 (diabetes mellitus, type 2) SNOMED Code(s): 99645929 ICD Code: E11.9 - TYPE 2 DIABETES MELLITUS WITHOUT COMPLICATIONS Status: Chronic Current Visit: No Qualifiers: Diabetes mellitus 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 Diabetes mellitus complication status: with hypoglycemia Diabetes mellitus complication detail: without coma Qualified Code(s): E11.649 - Type 2 diabetes mellitus with hypoglycemia without coma; Z79.4 - prison (current) use of insulin (8) ESRD (end stage renal disease) on dialysis SNOMED Code(s): 316727252 ICD Code: N18.6 - END STAGE RENAL DISEASE; Z99.2 - DEPENDENCE ON RENAL DIALYSIS Status: Chronic Current Visit: No (9) Lung cancer SNOMED Code(s): 096618409 ICD Code: C34.90 - MALIGNANT NEOPLASM OF UNSP PART OF UNSP BRONCHUS OR LUNG Status: Chronic Current Visit: No Problem List Initiated/Reviewed/Updated: Yes Orders Last 24hrs: Active Orders 24 hr Category Date Time Status Patient Status [ADT] Routine ADT 10/30/17 10:36 Active Activity as Tolerated [RC] .Routine Care 10/30/17 10:46 Active Communication Order [RC] PRN Care 10/30/17 10:44 Active Oxygen Therapy [RC] PRN Care 10/30/17 10:47 Active Regular Diet [DIET] Diet 10/30/17 Lunch Active Bisacodyl [Dulcolax] Med 10/30/17 10:44 Active 10 mg RECTAL DAILY PRN Haloperidol Lactate [Haldol 2 MG/ML Soln] Med 10/30/17 10:42 Active 1 mg PO Q6H PRN Hyoscyamine [Hyomax-SL] Med 10/30/17 10:42 Active 0.125 mg SL Q4H PRN Morphine [Morphine 20 MG/ML Soln] Med 10/30/17 10:44 Active 10 mg SL Q30M PRN Comfort Measures [OM.PC] Routine Oth 10/30/17 11:01 Ordered RT Suction Oropharyngeal [RESPCARE] Routine Oth 10/30/17 10:46 Ordered Resuscitation Status Routine Resus Stat 10/30/17 10:48 Ordered Medication Orders Bisacodyl (Dulcolax) 10 mg RECTAL DAILY PRN PRN Reason: if no BM in 3 days Haloperidol Lactate (Haldol 2 Mg/Ml Soln) 1 mg PO Q6H PRN PRN Reason: restlessness Hyoscyamine (Hyomax-Sl) 0.125 mg SL Q4H PRN PRN Reason: secretions Morphine Sulfate (Morphine 20 Mg/Ml Soln) 10 mg SL Q30M PRN PRN Reason: pain/shortnessofbreath Assessment/Plan Comment:: This 82 year old male admitted for Palliative care for metastatic lung cancer and ERSD dependent on dialysis. Currently on Hospice. Admitted for Respite care. Continue Morphine SL, Haldol SL, Levsin SL along with Oxygen for comfort measures. Will monitor for pain control. Daughter at bedside with Hospice nurse.
--- NOTE | 2017-10-30 12:54 | PCM.DCSUM1 ---
Discharge Summary - Discharge Data Discharge Date: 10/30/17 Discharge Disposition: 20 Preliminary Cause of *Q: Other_Special Instruction Event(s) Leading to Patient's *Q: Metastatic Lung cancer, ESRD dialysis dependent, Hospice care. Condition: - Discharge Diagnosis/Problem(s) (1) Admission for hospice care SNOMED Code(s): 531254272, 385225766 ICD Code: Z51.5 - ENCOUNTER FOR PALLIATIVE CARE Status: Acute Current Visit: Yes (2) Palliative care status SNOMED Code(s): 144642603 ICD Code: Z51.5 - ENCOUNTER FOR PALLIATIVE CARE Status: Acute Current Visit: Yes (3) Hx of myocardial infarction SNOMED Code(s): 641427496 ICD Code: I25.2 - OLD MYOCARDIAL INFARCTION Status: Chronic Current Visit : Yes (4) HTN (hypertension) SNOMED Code(s): 56239733 ICD Code: I10 - ESSENTIAL (PRIMARY) HYPERTENSION Status: Chronic Current Visit: Yes Qualifiers: Hypertension type: essential hypertension Qualified Code(s): I10 - Essential (primary) hypertension (5) Anemia, chronic disease SNOMED Code(s): 489295118 ICD Code: D63.8 - ANEMIA IN OTHER CHRONIC DISEASES CLASSIFIED ELSEWHERE Status: Chronic Current Visit: Yes (6) CAD (coronary artery disease) SNOMED Code(s): 12175182 ICD Code: I25.10 - ATHSCL HEART DISEASE OF [place] CORONARY ARTERY W/O ANG PCTRS Status: Chronic Current Visit: No (7) DM type 2 (diabetes mellitus, type 2) SNOMED Code(s): 68025014 ICD Code: E11.9 - TYPE 2 DIABETES MELLITUS WITHOUT COMPLICATIONS Status: Chronic Current Visit: No Qualifiers: Diabetes mellitus 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 Diabetes mellitus complication status: with hypoglycemia Diabetes mellitus complication detail: without coma Qualified Code(s): E11.649 - Type 2 diabetes mellitus with hypoglycemia without coma; Z79.4 - detention (current) use of insulin (8) ESRD (end stage renal disease) on dialysis SNOMED Code(s): 528666155 ICD Code: N18.6 - END STAGE RENAL DISEASE; Z99.2 - DEPENDENCE ON RENAL DIALYSIS Status: Chronic Current Visit: No (9) Lung cancer SNOMED Code(s): 677218315 ICD Code: C34.90 - MALIGNANT NEOPLASM OF UNSP PART OF UNSP BRONCHUS OR LUNG Status: Chronic Current Visit: No - Discharge Plan Home Medications: Home Meds Insulin Aspart [Novolog Flexpen] 9 units SQ DAILY 02/15/15 [History] Insulin Aspart [Novolog Flexpen] 11 units SQ BID 02/15/15 [History] Albuterol/Ipratropium [DuoNeb 3.0-0.5 MG/3 ML] 1 ampule INH ASDIRECTED 10/14/17 [History] Ipratropium/Albuterol Sulfate [Combivent Respimat Inhal [place]] 20 mcg IH ASDIRECTED 10/14/17 [History] Isosorbide Mononitrate [Imdur] 1 tab PO BID 10/14/17 [History] Metoprolol Succinate [Toprol XL 100mg] 100 mg PO BID 10/14/17 [History] NIFEdipine [Nifedipine ER] 1 tab PO DAILY 10/14/17 [History] Oxybutynin 1 tab PO DAILY 10/14/17 [History] Rosuvastatin Calcium 40 mg PO DAILY 10/14/17 [History] Sevelamer Carbonate [Renvela] 1 tab PO DAILY 10/14/17 [History] oxyCODONE HCl [Oxycodone HCl ER] 1 tab PO Q4HR PRN 10/14/17 [History] Insulin Detemir [Levemir Flextouch] 25 units SQ DAILY #0 10/15/17 [Rx] Insulin Detemir [Levemir Flextouch] 30 units SQ DAILY #0 10/15/17 [Rx] - Discharge Summary/Plan Comment DC Time >30 min.: No Discharge Summary/Plan Comment: Cause of : ESRD dialysis dependent Metastatic lung cancer Secondary diagnoses: Palliative care Hx [place] HTN Anemia of chronic disease CAD DM type 2, insulin dependent Rufus was admitted for Hospice respite care. He was noted to be in respiratory distress with shortness of breath and air hunger, he was given morphine SL. Family was at bedside intermittently. NurseClarisa RN notified me of worsening pain and agitation, Morphine dose increased to 15 mg. When she was going to give this patient was noted to no longer have respirations or pulse. Son at bedside. I was notified and assessed patient. No respirations or pulse auscultated. Time of 1240. Son notified as well as granddaughter at bedside. Charge nurse Tanna at bedside who will notified Hospice nurse and pastoral care. I did leave a message for PCP, Dr Jane regarding Rufus's . - Patient Data Vitals - Most Recent: Last Vital Signs Temp 97.7 F 10/30/17 10:31 Pulse 72 10/30/17 10:31 Resp 22 H 10/30/17 10:31 BP 161/55 H 10/30/17 10:31 Pulse Ox 86 L 10/30/17 10:31 Med Orders - Current: Current Medications Bisacodyl (Dulcolax) 10 mg RECTAL DAILY PRN PRN Reason: if no BM in 3 days Haloperidol Lactate (Haldol 2 Mg/Ml Soln) 1 mg PO Q6H PRN PRN Reason: restlessness Last Admin: 10/30/17 11:03 Dose: 0.5 ml Hyoscyamine (Hyomax-Sl) 0.125 mg SL Q4H PRN PRN Reason: secretions Last Admin: 10/30/17 11:05 Dose: 0.125 mg Morphine Sulfate (Morphine 20 Mg/Ml Soln) 15 mg SL Q30M PRN PRN Reason: pain/shortnessofbreath Discontinued Medications Morphine Sulfate (Morphine 20 Mg/Ml Soln) 5 mg SL Q30M PRN PRN Reason: pain/shortnessofbreath Morphine Sulfate (Morphine 20 Mg/Ml Soln) 10 mg SL Q30M PRN PRN Reason: pain/shortnessofbreath Last Admin: 10/30/17 12:24 Dose: 0.5 ml
== END 2017-10-30 12:40 | disposition expired | DRG 951 ==
LOC: MW.MS 10:29
PROVIDERS: ADMIT Internal Medicine; ATTEND Internal Medicine
DX: Z51.5 Encounter for palliative care (principal); N18.6 End stage renal disease; I12.0 Hypertensive chronic kidney disease with stage 5 chronic kidney disease or end stage renal disease; C34.90 Malignant neoplasm of unspecified part of unspecified bronchus or lung; C79.9 Secondary malignant neoplasm of unspecified site; Z75.5 Holiday relief care; E11.22 Type 2 diabetes mellitus with diabetic chronic kidney disease; E11.649 Type 2 diabetes mellitus with hypoglycemia without coma; D63.1 Anemia in chronic kidney disease; D63.0 Anemia in neoplastic disease; I25.10 Atherosclerotic heart disease of native coronary artery without angina pectoris; J44.9 Chronic obstructive pulmonary disease, unspecified; I25.2 Old myocardial infarction; Z99.2 Dependence on renal dialysis; Z79.4 Long term (current) use of insulin; Z79.899 Other long term (current) drug therapy; Z88.0 Allergy status to penicillin; Z95.5 Presence of coronary angioplasty implant and graft; E78.00 Pure hypercholesterolemia, unspecified; F17.200 Nicotine dependence, unspecified, uncomplicated
CPT/HCPCS: A9270-GY